=== PATIENT | male | born 1955 | race Caucasian/White ===

== ENCOUNTER 2025-05-20 08:23 | Emergency (ER) | payer MEDICARE, OTHER, SELFPAY ==
--- OUTSIDE RECORDS SUMMARY | 2025-05-20 08:32 | XMS_ITS | Encounter Summary ---
Author Organization [facility] Address [address] [place] [address] Phone Care Team Providers Care Head Control Clerk Name Role Phone Xavier Sofia MD Primary Care Provider Jamey Figueredo MD Unavailable [phone] Reason for Visit * Reason Comments Medication Refill Encounter Details Date Type Department Care Team ([facility] Contact Info) Description 01/13/2021 Refill [facility] - Internal Medicine - [place] [address] [place] [id number] Xavier Sofia MD [address] [place] [address] Medication Refill Social History Tobacco Use Types Packs/Day Years Used Date Smoking Tobacco: Former Cigarettes Q uit: 07/10/2014 Smokeless Tobacco: Never Alcohol Use Standard Drinks/Week Comments Yes 42 (1 standard drink = 0.6 oz pu re alcohol) 6 beers daily PHQ-2 Answer Date Recorded Total Score - Questions 1-9 0 10/14 Sex and Gender Information Value Date Recorded Sex Assigned at Not on file Legal Sex Male 9:16 PM CDT Gender Identity Not on file Sexual Orientation Not on file COVID-19 Exposure Response Date Recorded In the last month, have you been in contact with someone who was confirmed or suspected to have Coronavirus / COVID-19? No / Unsure 12/22/2020 6:37 PM CASTING AND PASTING SUPERVISOR documented as of this encounter Plan of Treatment Upcoming Encounters Date Type Department Care Team (Late Contact Info) Description 06/22/2025 1:00 PM CDT Office Visit [facility] - Primary Care - [place] [address] [place] [place] [phone] Xavier Sofia MD [address] [place] [address] documented as of this encounter Visit Diagnoses Not on filedocumented in this encounter Additional Health Concerns Infection Onset Date Last Indicated Resolved Time C. difficile Rule-Out 04/20/2025 04/20/20252024 11:00 PM CDT Assessment Noted Time PHQ-9 Depression Total Score: 0 10/25/19 1:00 PM CASTING AND PASTING SUPERVISOR documented as of this encounter Care Teams Head Control Clerk Relationship Specialty Start Date End Date Xavier Sofia MD [address] [place] [address] PCP - General Internal Medicine 06/29/16 Jamey Figueredo MD [address] [place] [address] Consulting Physician Psychiatry 06/01/21 documented as of this encounter
--- OUTSIDE RECORDS SUMMARY | 2025-05-20 08:32 | XMS_ITS | Encounter Summary ---
Author Organization [facility] Address [address] [place] [address] Phone Care Team Providers Care Aquatic Scientist Name Role Phone Xavier Sofia MD Primary Care Provider [phone] Jamey Figueredo MD Unavailable Reason for Visit * Reason Comments Medication Refill Encounter Details Date Type Department Care Team (Late st Contact Info) Description 03/09/2024 Refill [facility] - Internal Medicine - [place] [address] [place] [phone] Xavier Sofia MD [address] [place] [address] Medication Refill Social History Tobacco Use Types Packs/Day Years Used Date Smoking Tobacco: Former Cigarettes Q uit: 11/09/2022 Passive Smoke Exposure: Past Smokeless Tobacco: Never Comments:quit on 05/03/2021; started back up again 10/07/2021 Alcohol Use Standard Drinks/Week Comments Yes 5 (1 standard drink = 0.6 oz pur e alcohol) [facility] Utilities Answer Date Recorded In the past 12 months has [employer], gas, oil, or water company threatened to shut off services in your home? No 11/19/2023 Social Connection and Isolation Panel Answer Date Recorded In a typical week, how many times do you talk on the phone with family, friends, or neighbors? More than three times a week 11/19/2023 How often do you get togethe r with friends or relatives? More than three times a week 11/19/2023 How often do you attend chur ch or druze services? Never 11/19/2023 Do you belong to any clubs o r organizations such as christianity groups, unions, fraternal or athletic groups, or school groups? No 11/19/2023 How often do you attend meet ings of the clubs or organizations you belong to? Never 11/19/2023 Are you , , di vorced, , never , or living with a partner? 11/19/2023 AUDIT-C Answer Date Recorded Q1: How often do you have a drink containing alcohol? Never 11/19/2023 Q2: How many drinks containi ng alcohol do you have on a typical day when you are drinking? Patient does not drink Q3: How often do you have si x or more drinks on one occasion? Never 11/19/2023 Overall Financial Resource Strain (CARDIA) Answe r Date Recorded How hard is it for you to pa y for the very basics like food, housing, medical care, and heating? Not hard at all 11/19/2023 PHQ-2 Answer Date Recorded Total Score - Questions 1-9 0 04/2024 [facility] - Occupational Stress Questionnaire Answer Date Recorded Do you feel stress - tense, restless, nervous, or anxious, or unable to sleep at night because your mind is troubled all the time - these days? Not at all 11/19/2023 Exercise Vital Sign Answer Date Recorde d On average, how many days pe r week do you engage in moderate to strenuous exercise (like a brisk walk)? 3 days 11/19/2023 On average, how many minutes do you engage in exercise at this level? 30 min 11/19/2023 Hunger Vital Sign Answer Date Recorded Within the past 12 months, y ou worried that your food would run out before you got the money to buy more. Never true 11/19/19 24 Within the past 12 months, t he food you bought just didn't last and you didn't have money to get more. Never true 11/19/2023 PRAPARE - Transportation Answer Date Re corded In the past 12 months, has l ack of transportation kept you from medical appointments or from getting medications? No 03/2024 In the past 12 months, has l ack of transportation kept you from meetings, work, or from getting things needed for daily living? No 11/19/2023 Housing Stability Vital Sign Answer Johnny e Recorded In the last 12 months, was t here a time when you were not able to pay the mortgage or rent on time? No 11/19/2023 In the last 12 months, how many places have you lived? 1 11/19/2023 In the last 12 months, was t here a time when you did not have a steady place to sleep or slept in a fci (including now)? No 11/19/2023 Sexually Active Control Partners Comments Not Currently Sex and Gender Information Value Date Recorded Sex Assigned at Not on file Legal Sex Male 9:16 PM CDT Gender Identity Not on file Sexual Orientation Not on file documented as of this encounter Miscellaneous Notes * Telephone Encounter - Akua Reyes RN - 03/10/2024 10:30 AM CDT Medication(s) refilled and signed per [facility] Chronic Medication Refill Standing Order for Pediatricand Adult Patients. Requested Prescriptions Pending Prescriptions Disp Refills levothyroxine (SYNTHROID) 137 MCG Tablet [Pharmacy Med Name: LEVOTHYROXINE 0.137MG (137MCG) TAB] 90Tablet 3 Sig: Take 1 Tablet by mouth daily. Thyroid Hormones Protocol Passed - 03/09/2024 5:53 AM Passed - Visit with relevant provider in past 12 months or upcoming 90 days Recent Visits Date Type Provider Dept 02/18/24 Office Visit Xavier Sofia MD [facility] [place] 11/19/23 Office Visit Xavier Sofia MD [facility] [place] 08/13/23 Office Visit Xavier Sofia MD [facility] [place] 04/30/23 Office Visit Xavier Sofia MD [facility] [place] Showing recent visits within past 365 days and meeting all other requirements Future Appointments Date Type Provider Dept 05/26/24 Appointment Xavier Sofia MD [facility] [place] Showing future appointments within next 90 days and meeting all other requirements Passed - Normal TSH in past 12 months TSH Date Value Ref Range Status 11/26/2023 2.299 0.300 - 5.000 mIU/L Final documented in this encounter Plan of Treatment Upcoming Encounters Date Type Department Care Team (Late st Contact Info) Description 06/22/2025 1:00 PM CDT Office Visit [place] [id number] [place] [address] Xavier Sofia MD [address] [place] [address] documented as of this encounter Visit Diagnoses Diagnosis Other specified hypothyroidism documented in this encounter Additional Health Concerns Infection Onset Date Last Indicated Resolved Time C. difficile Rule-Out 04/20/2025 04/20/20252024 11:00 PM CDT Assessment Noted Time PHQ-9 Depression Total Score: 0 02/18/20 24 1:41 PM CDT documented as of this encounter Care Teams Aquatic Scientist Relationship Specialty Start Date End Date Xavier Sofia MD [address] [place] [address] PCP - General Internal Medicine 06/29/16 Jamey Figueredo MD [address] [place] [address] Consulting Physician Psychiatry 06/01/21 documented as of this encounter
--- OUTSIDE RECORDS SUMMARY | 2025-05-20 08:32 | XMS_ITS ---
Author Name Auto Generated, Auto Generated Organization [employer] [facility] ices Address [address] [place] [address] Phone [phone] Care Team Providers Care Physical Therapist Clinic Director Name Role Phone Erick Prieto Functional Status No Results Mental Status No Results Allergies and Intolerances No Known Allergies Medications Medication Directions Start Date End Date FLUoxetine 40 mg capsule 40mg CAPSULE Or al 1 Time Daily SatSep 13 18:00:00 2015Sep 16:00:00 2015 labetalol 200 mg tablet 200mg TABLET Ora l 2 Times Daily SatSep 13::00 2015Sep 16:00:00 2015 levothyroxine 175 mcg tablet 175mcg TABLET Oral 1 Time Daily SatSep 13 18:00:00 2015Sep 16:00:00 EST 2015 omeprazole 20 mg tablet,delayed release 20mg TABLET, DELAYED RELEASE (ENTERIC COATED) Sublingual 1 Time Daily SatSep 13 18:00:00 2015Sep 16:00:00 EST 2015 pravastatin 40 mg tablet 40mg TABLET Ora l 1 Time Daily SatSep 13:00:00 2015Sep 16:00:00 2015 venlafaxine 75 mg tablet 75mg TABLET Ora l 1 Time Daily SatSep 13 18:00:00 2015Sep 16:00:00 2015 acetaminophen 325 mg tablet 650mg TABLET Oral PRN Every 4 Hours SatSep 13 18:00:00 2015Sep 16:00:00 EST 2015 aspirin 81 mg tablet,delayed release 81mg EC TABLET, DELAYED RELEASE (ENTERIC COATED) Oral 1 Time Daily SatSep 13 18:00:00 2015Sep 16:00:00 2015 dilTIAZem 30 mg tablet 30mg TABLET Oral Every 8 Hours SatSep 13 18:00:00 2015Sep 16:00:00 2015 Colace 100 mg capsule 100mg CAPSULE Oral 2 Times Daily SatSep 13 18:00:00 2015Sep 16:00:00 2015 guaiFENesin ER 600 mg tablet, extended release 12 hr 600mg TABLET, EXTENDED RELEASE 12 HR Oral Every 12 Hours SatSep 13:00:00 2015Sep 16:00:00 2015 ibuprofen 600 mg tablet 600mg TABLET Ora l PRN Every 8 Hours SatSep 13:00:00 2015Sep 16 01:00:00 2015 Problems Active Concerns * Multiple fractures of ribs, left side, subsequent encounter for fracture with routine healing* Code: * Start Date: SatSep 13 00:00:00 2015 * End Date: * Text: * Pain in thoracic spine* Code: * Start Date: SatSep 13 00:00:00 2015 * End Date: * Text: * Hypo-osmolality and hyponatremia* Code: * Start Date: SatSep 13 00:00:00 2015 * End Date: * Text: * Alcohol dependence, uncomplicated* Code: * Start Date: SatSep 13 00:00:00 2015 * End Date: * Text: * Essential (primary) hypertension* Code: * Start Date: SatSep 13 00:00:00 2015 * End Date: * Text: Reason for Referral Past Medical History
--- OUTSIDE RECORDS SUMMARY | 2025-05-20 08:32 | XMS_ITS | Clinical Summary ---
Author Organization [facility] Address [address] [place] [address] Phone Care Team Providers Care Customer Accounts Advisor Name Role Phone Xavier Sofia MD Primary Care Provider Jamey Figueredo MD Unavailable Medications FLUoxetine (PROZAC) 40 MG Capsule Take 40 mg by mouth daily. 01/16/20 17 Active aspirin EC 81 MG Tablet Delayed Response Take 81 mg by mouth daily. Active amLODIPine (NORVASC) 10 MG Tablet Take 1 Tablet by mouth daily. 90 Tablet 1 12/01/19 25 Active levothyroxine (SYNTHROID) 137 MCG TabletIndications: Other specified hypothyroidism Take 1 Tablet by mouth daily. 90 Tablet 1 12/01/19 25 Active pravastatin (PRAVACHOL) 40 MG Tablet Take 1 Tablet by mouth nightly. 90 Tablet 1 12/01/19 25 Active hydrALAZINE 25 MG Tablet Take 1 Tablet by mouth 3 times daily. 270 Tablet 1 12/01/19 25 Active labetalol (NORMODYNE) 200 MG Tablet TAKE 1 TABLET BY MOUTH TWICE DAILY 180 Tablet 1 02/16/20 25 Active albuterol 108 (90 Base) MCG/ACT Aerosol Solution INHALE 2 PUFFS BY MOUTH EVERY 6 HOURS NEEDED FOR WHEEZING 6.7 g 02/26/20 25 Active rOPINIRole (REQUIP) 0.25 MG Tablet Take 1 Tablet by mouth nightly. 30 Tablet 3 04/15/20 25 Active benazepril (LOTENSIN) 40 MG Tablet TAKE 1 TABLET BY MOUTH DAILY 90 Tablet 1 05/03/20 25 Active celecoxib (CeleBREX) 200 MG Capsule Take 1 Capsule by mouth daily as needed for Mild or more severe pain. 30 Capsule 3 05/10/20 25 Active famotidine (PEPCID) 40 MG Tablet TAKE 1 TABLET BY MOUTH EVERY EVENING 90 Tablet 05/17/20 25 Active benazepril (LOTENSIN) 40 MG Tablet Take 1 Tablet by mouth daily. 90 Tablet 1 12/01/19 25 025 Discontinued famotidine (PEPCID) 40 MG Tablet Take 1 Tablet by mouth every evening. 90 Tablet 1 12/01/19 25 025 Discontinued Active Problems Problem Noted Date Diagnosed Date GERD without esophagitis 03/09/2025 Aneurysm of ascending aorta without rupture 11/14 Generalized osteoarthritis 02/18/2024 Chronic right shoulder pain 01/22/2023 Panlobular emphysema 01/24/2021 Alcoholic steatohepatitis 10/25/2020 Obstructive sleep apnea syndrome 05/21/2017 Tear of left rotator cuff 01/31/2017 Other hyperlipidemia 01/29/2017 Other specified hypothyroidism 03/21/2012 Essential hypertension, benign 12/22/2010 Dysthymic disorder 12/22/2010 Encounters Date Type Department Care Team Description 05/15/20[facility] [address] [place] [address] Xavier Sofia MD Medication Refill 05/14/2025 [facility] [address] [place] [address] Xavier Sofia MD Medication Refill 05/10/2025 [facility] [facility] [address] [place] [address] Xavier Sofia MD Medication Refill 05/01/2025 [facility] [address] [place] [address] Xavier Sofia MD Medication Refill 04/15/2025 [facility] [address] [place] [address] Xavier Sofia MD 04/01/2025 Telephone [facility] [address] [facility] [place] [address] Xavier Sofia MD 03/09/2025 2:45 PM CDT Office Visit [facility] [address] [facility] [place] [address] Xavier Sofia MD Essential hypertension, benign (Primary Dx); Other hyperlipidemia; Other specified hypothyroidism; Dysthymic disorder; GERD without esophagitis Discharge Disposition: Discharged to home or Selfcare 03/09/2025 Travel 02/25/2025 Refill [facility] [address] [facility] [place] [address] Xavier Sofia MD Medication Refill from Last 3 Months Immunizations Immunization Administration Dates Next Due COVID-19, MRNA, LNP-S, BIVAL ENT , PFIZER, 30 MCG/0.3 ML (12+ Y/O) 07/19/2022 Covid-19, Mrna, Lnp-s, PF, 1 00 mcg/0.5 mL Dose (Moderna) 12/22/2020,11/24/2020 Covid-19, Mrna, Lnp-s, Pf, 1 00 Mcg Or 50 Mcg Dose (MODERNA) 08/11/2021 Covid-19, Mrna, Lnp-s, Pf, 3 0 Mcg/0.3 Ml Dose, Ronal-sucrose (Pfizer crandall top) 02/01/2022 Covid-19, Mrna, Lnp-s, Pf, Ronal-sucrose, 30 Mcg/0.3 Ml (Pfizer) 06/24/2024 Influenza Vaccine 08/18/2019 Influenza Vaccine, Quadrivalent, PF 10/01/2022,07/27/2021,07/26/2020,09/13 Influenza, Injectable, Mdck, Preservative Free 08/29/2013 Influenza, Quadrivalent, Adjuvanted 08/13/2023 Influenza, Trivalent, Adjuvanted, PF 08/25/2024 Pneumococcal Vaccine - 13 Valent 04/25/2021 Pneumococcal Vaccine Adult - 23 Valent 6 Pneumococcal conjugate PCV20 , polysaccharide [id number] conjugate, adjuvant, PF 10/23/2022 RSV, Recombinant, Protein Quach bunit Rsvpref, Adjuvant Recon (Arexvy) 10/24/2023 Sars-cov-2 (Covid-19) Vaccin e, Unspecified 07/19/2023 Zoster Vaccine Recombinant 05/12/2024,02/24/2024 Family History Medical History Relation Name Comments Asthma Father No Known Problems Mother No Known Problems Sister Relation Name Status Comments Father Mother Sister Alive Social History Tobacco Use Types Packs/Day Years Used Date Smoking Tobacco: Former Cigarettes Q uit: 11/09/2022 Passive Smoke Exposure: Past Smokeless Tobacco: Never Tobacco Cessation:Counseling Given: No Comments:quit on 05/03/2021; started back up again 10/07/2021 Alcohol Use Standard Drinks/Week Comments Yes 5 (1 standard drink = 0.6 oz pur e alcohol) [employer] Answer Date Recorded In the past 12 months has [employer], gas, oil, or water [employer] threatened to shut off services in your [...] week 11/19/2023 How often do you attend [facility] or ten[facility] services? Never 11/19/2023 Do you belong to any clubs o r organizations such as restoration groups, unions, fraternal or athletic groups, or [...] Recorded Total Score - Questions 1-9 0 02/12 [facility] - Occupational Stress Questionnaire Answer Date [...] place to sleep or slept in a nursing home (including now)? No 11/19/2023 Sexually Active Control Partners Comments Not Currently Sex and Gender Information Value Date Recorded Sex Assigned at Not on file Legal Sex Male 9:16 PM CDT Gender Identity Not on file Sexual Orientation Not on file Last Filed Vital Signs Vital Sign Reading Time Taken Comments Blood Pressure 118/66 03/09/2025 2:48 PM CDT Pulse 66 03/09/2025 2:48 PM CDT Temperature 36.7 C (98 F) 03/09/2025 2:48 PM CDT Respiratory Rate 12 05/26/2024 11:33 AM CDT Oxygen Saturation 94% 03/09/2025 2:48 PM CDT Inhaled Oxygen Concentration - - Weight 118.4 kg (261 lb) 03/09/2025 2:48 PM CDT Height 180.3 cm (5' 11) 03/09/2025 2:48 PM CDT Body Mass Index 36.4 03/09/2025 2:48 PM CDT Plan of Treatment Upcoming Encounters Date Type Department Care Team (Late st Contact Info) Description 06/22/2025 1:00 PM CDT Office Visit [facility] - Primary Care - [place] [address] [place] [address] Xavier Sofia MD [address] [place] [address] Health Maintenance Due Date Last Done Comments Hepatitis C Virus (HCV) Screening 1955 TdaP Immunization 1955 Cologuard 1998 Immunochemical Fecal Occult Blood 1998 SARS-COV-2 Immunization ( season) 2024 06/24/2024, 07/19/2023, 07/19/2022, Additional history exists Influenza Immunization (#1) 06/14/202508/14, 08/13/2023, 07/17/2022, Additional history exists Colonoscopy 11/01/2025 11/01/2015 Colorectal Cancer Screening 11/01/2025 AAA Screening Ultrasound Completed 08/29/2021 Pneumococcal Immunization (50+ years) Completed 10/23/2022, 04/25/2021, 09/13/2016 Pneumococcal Immunization Combined Discontinued 10/23/2022, 04/25/2021, 09/13/2016 Respiratory Syncytial Virus (RSV) Immunization (Adult) Completed 10/24/2023 PSA Discussion Discontinued 11/26/2023, 0404/2022, 09/16/2019 Zoster Immunization Completed 05/12/2024, Hepatitis B Immunization Aged Out No longer eligible based on patient's age to complete this topic Human Papillomavirus (HPV) Immunization Aged Out No longer eligible based on patient's age to complete this topic Meningococcal Immunization (ACWY) Aged Out No longer eligible based on patient's age to complete this topic Rotavirus Immunization Aged Out No lo nger eligible based on patient's age to complete this topic Medical Devices Implanted Type Area Industrial Mechanic Device Identifier Shelf Expiration Date Model / Serial / Lot Suture [place], Biocomposite Swivelock, Double Loaded Implanted:Qty: 3 on 01/31/2017 by Dale Robert MD at [facility] Left: Shoulder [employer] 05/13/2018 [id number] / / [id number] Procedures Procedure Name Priority Date/Time Associated Diagnosis Comments PSA SCREEN Routine 11/26/2023 8:57 AM WINDING DEPARTMENT SUPERVISOR Screening for prostate cancer US AAA SCREENING Routine 08/29/2021 8:40 AM WINDING DEPARTMENT SUPERVISOR Smoking history Encounter for abdominal aortic aneurysm (AAA) screening COLONOSCOPY Routine 11/01/2015 from Last 3 Months or Most Recently Relevant to Health Maintenance Results * PSA SCREEN (11/26/2023 8:57 AM WINDING DEPARTMENT SUPERVISOR) PSA SCREEN, TOTAL 0.39 <4.00 ng/mL 11/26/2023 3:50 PM WINDING DEPARTMENT SUPERVISOR [facility] Blood Venipuncture / Unknown 11/26/2023 8:57 AM WINDING DEPARTMENT SUPERVISOR 11/26/2023 8:57 AM WINDING DEPARTMENT SUPERVISOR Narrative [facility] - 11/26/2023 3:50 PM WINDING DEPARTMENT SUPERVISOR [facility] Total PSA assay is a Chemiluminescent Microparticle Immunoassay (CMIA) for the quantitative determination of total PSA (both free PSA and PSA complexed to [id number]) in human serum. Total PSA values obtained with different assay methods, including Shanks PSA assays, cannot be used interchangeably. Xavier Sofia MD CHEMISTRY ORDERABLES Final Result [facility] [facility] [place] [address] * US AAA SCREENING (08/29/2021 8:40 AM WINDING DEPARTMENT SUPERVISOR) Anatomical Region Laterality Modality Abdomen N/A Ultrasound 08/29/2021 9:16 AM WINDING DEPARTMENT SUPERVISOR Impressions 08/29/2021 9:19 AM WINDING DEPARTMENT SUPERVISOR IMPRESSION: No abdominal aortic aneurysm. Narrative 08/29/2021 9:19 AM WINDING DEPARTMENT SUPERVISOR EXAM DESCRIPTION: US AAA SCREENING REASON FOR STUDY: Personal history of nicotine dependence TECHNIQUE: Grayscale images acquired of the aorta and stored on PACS. Selected color Doppler and spectral images recorded. COMPARISON: None FINDINGS: No aneurysm identified. Atheromatous disease of the aorta. Iliac arteries are nondilated. THIS IS AN ELECTRONICALLY VERIFIED FINAL REPORT 08/29/2021 9:16 AM - Electronically signed by Ta Johnson M.D. NC: NC Report ID: [id number] Reading Location: [id number] Procedure Note Ta Johnson MD - 08/29/2021 EXAM DESCRIPTION: US AAA SCREENING REASON FOR STUDY: Personal history of nicotine dependence TECHNIQUE: Grayscale images acquired of the aorta and stored on PACS. Selected color Doppler and spectral images recorded. COMPARISON: None FINDINGS: No aneurysm identified. Atheromatous disease of the aorta. Iliac arteries are nondilated. THIS IS AN ELECTRONICALLY VERIFIED FINAL REPORT 08/29/2021 9:16 AM - Electronically signed by Ta Johnson M.D. NC: NC Report ID: [id number] Reading Location: [id number] IMPRESSION: No abdominal aortic aneurysm. Xavier Sofia MD IMG US ORDERABLES Final Res ult * HM COLONOSCOPY (11/01/2015) Xavier Sofia MD PROCEDURE/MINOR SURGICAL OR DERABLES Final Result from Last 3 Months or Most Recently Relevant to Health Maintenance Insurance MEDICARE GROUP [employer]RAT[employer] Member Subscriber Plan / Payer (Ef fective 2002-Present) Name:Aly Bryn Earl Relation to Subscriber:Self Name:Bryn Lu Mady Payer ID:[id number] Group ID:[id number] Type:Not on file Address: [facility] [address] [place] [address] Advance Directives * Full Code (Latest Code Status on File) Date Activated Date Inactivated Comments 01/31/2017 5:25 AM 01/31/2017 1:16 PM CPR-Full Justin atment: FULL ARREST: Attempt Resuscitation/CPR wit intubation and mechanical ventilation. PRE-ARREST: Use entire range of life support measures to stabilize the patient. Care Teams Customer Accounts Advisor Relationship Specialty Start Date End Date Xavier Sofia MD [address] [place] [address] PCP - General Internal Medicine 06/29/16 Jamey Figueredo MD [address] [place] [address] Consulting Physician Psychiatry 06/01/21
[2025-05-20 08:34] VITALS: BP 133/77; PULSE 89; RESP 16; TEMP 36.1; O2SAT 96
--- OUTSIDE RECORDS SUMMARY | 2025-05-20 08:35 | XMS_ITS ---
Author Name Auto Generated, Auto Generated Organization [employer] [facility] ices Address [address] [place] [address] Phone [phone] Care Team Providers Care Redye Hand Name Role Phone Erick Prieto [phone] Functional Status No Results Mental Status No [...]
--- OUTSIDE RECORDS SUMMARY | 2025-05-20 08:35 | XMS_ITS ---
Author Name Auto Generated, Auto Generated Organization [employer] [facility] ices Address [address] [place] [address] Phone [phone] Care Team Providers Care Edge Glue Machine Tender Name Role Phone Erick Prieto [phone] Functional Status No Results Mental Status No [...]
--- NOTE | 2025-05-20 08:56 | ED_ITS ---
HPI - General Adult General Chief complaint: Unspecified Stated complaint: Body Aches/Sleeping Problems Time Seen by Provider: 05/20/25 08:30 Source: patient and RN notes reviewed Mode of arrival: ambulatory Limitations: no limitations History of Present Illness HPI narrative: 69-year-old male presents to the ER complaining of generalized joint pain the last 2 weeks. Patient denies any falls or injuries. Patient denies any sick symptoms, fevers, body aches, chills, upper respiratory symptoms, cough, chest pain difficulty breathing, or any other symptoms. Patient has a primarily feels pain in the joints of his hands and into his bilateral knees. Patient denies any history of arthritis or rheumatoid arthritis or any autoimmune conditions. Patient also reports his hands feel tight. Patient cannot see his primary care provider until next month they prescribed him Celebrex and ropinirole to help with pain he thought he may have restless leg syndrome. They also stopped his statin for 2 weeks the may be the reason of his joint pain however the pain persists. Related Data Home Medications ?Medication ?Instructions ?Recorded ?Confirmed ?Last Taken ?Type amlodipine 10 mg tablet mg 05/20/25 Unknown History benazepril 40 mg tablet mg 05/20/25 Unknown History celecoxib 200 mg capsule mg 05/20/25 Unknown History famotidine 40 mg tablet mg 05/20/25 Unknown History fluoxetine 40 mg capsule mg 05/20/25 Unknown History hydralazine 25 mg tablet mg 05/20/25 Unknown History labetalol 200 mg tablet mg 05/20/25 Unknown History levothyroxine 137 mcg tablet mcg 05/20/25 Unknown History pravastatin 40 mg tablet mg 05/20/25 Unknown History ropinirole 0.25 mg tablet mg 05/20/25 Unknown History Allergies Allergy/AdvReac Type Severity Reaction Status Date / Time No Known Allergies Allergy Verified 05/10/13 13:15 Review of Systems Review of Systems: CONSTITUTIONAL: Denies fever, chills, or sweats. EYES: Denies visual changes, redness, or discharge. ENT: Denies rhinorrhea, congestion, sore throat, or otalgia. CARDIOVASCULAR: Denies chest pain, palpitations, or edema. RESPIRATORY: Denies cough or dyspnea. GASTROINTESTINAL: Denies abdominal pain, nausea, vomiting, or diarrhea. GENITOURINARY: Denies dysuria or hematuria. SKIN: Denies rash or itching. MUSCULOSKELETAL: Denies back pain, or myalgia. Positive for joint pain. NEUROLOGIC: Denies headache, numbness, or weakness. PSYCHIATRIC: Denies anxiety or depression. All other systems reviewed are negative, except as documented in HPI. PMFSH Comments At the time of my signature, I reviewed and agree with the nursing past medical, surgical, social, and family history. There is no relevant family history pertinent to the patient complaint. Exam Narrative: GENERAL: This is a well-nourished, well-developed adult, in no apparent distress. They are non ill-appearing, nontoxic appearing. HEAD: normocephalic, atraumatic. EYES: Sclera clear/white. Conjunctiva normal. Vision is grossly intact. Extraocular movements intact EARS: External ears normal,Hearing grossly intact. NOSE: External nose vielka THROAT: Mucous membranes moist, NECK: Neck supple, CARDIOVASCULAR: Regular rate and rhythm RESPIRATORY: Respiratory rate normal, respiratory effort nonlabored, no respiratory distress SKIN: warm, Dry, intact with no suspicious lesions or rash, good texture and turgor. NEURO: awake, alert, and oriented to person, place and time. There were no obvious focal neurologic abnormalities. EXTREMITIES: Bilateral hands: No obvious deformity, injury, bruising, swelling, redness. Mild tenderness throughout the hands. Neurovascular status intact. Bilateral knees: No obvious deformity, injury, bruising, swelling, redness. Normal range of motion. Neurovascular status intact. Nontender to palpate. BACK: Nontender without deformity. Course Course Emergency Course: Portions of this record may have been created with voice recognition software Level of Care: Express Care Visit Vital Signs Vital signs: Vital Signs Temperature 97.0 F L 05/20/25 08:34 Pulse Rate 89 05/20/25 08:34 Respiratory Rate 16 05/20/25 08:34 Blood Pressure 133/77 05/20/25 08:34 Pulse Oximetry 96 05/20/25 08:34 Oxygen Delivery Room Air 05/20/25 08:34 Temperature 97.0 F L 05/20/25 08:34 Pulse Rate 89 05/20/25 08:34 Respiratory Rate 16 05/20/25 08:34 Blood Pressure 133/77 05/20/25 08:34 Pulse Oximetry 96 05/20/25 08:34 Oxygen Delivery Room Air 05/20/25 08:34 Reviewed Medical Decision Making MDM Narrative Medical decision making narrative: Patient likely has joint pain could be related to arthritis possible rheumatoid arthritis. Patient's pains management unsuccessful from what is doctor's order prescribed. Will try a course of steroids. Discussed physical exam findings. Advised supportive measures and signs/symptoms to go to the ER. Pt is a ppropriate for outpt treatment and f/u. Differential Diagnosis Differential Diagnosis: Arthritis, rheumatoid arthritis, autoimmune disorder Vital Signs Vital Signs: Vital Signs Temperature 97.0 F L 05/20/25 08:34 Pulse Rate 89 05/20/25 08:34 Respiratory Rate 16 05/20/25 08:34 Blood Pressure 133/77 05/20/25 08:34 Pulse Oximetry 96 05/20/25 08:34 Oxygen Delivery Room Air 05/20/25 08:34 Temperature 97.0 F L 05/20/25 08:34 Pulse Rate 89 05/20/25 08:34 Respiratory Rate 16 05/20/25 08:34 Blood Pressure 133/77 05/20/25 08:34 Pulse Oximetry 96 05/20/25 08:34 Oxygen Delivery Room Air 05/20/25 08:34 Critical Care Time Critical Care Time Critical Care Time: No Discharge Plan Discharge Clinical Impression: Joint pain Qualifiers: Joint pain location: unspecified Qualified Code(s): M25.50 - Pain in unspecified joint Patient Disposition: Home Condition: Stable Instructions: Arthralgia (ED) Additional Instructions: Take the prednisone as directed. Take in the morning take with food. Continue take Tylenol as needed for pain. Follow the Instructions on the bottle. Continue take your prescription medications as directed for pain. Follow-up with your PCP in 3-5 days. If you Developed worsening pain, fevers, breathing problems, chest pain, vision problems or any serious concerns please go to the ER. Patient Language: Haitian Prescriptions: New prednisone 20 mg tablet 40 mg PO DAILY 5 Days Qty: 10 0RF No Action celecoxib 200 mg capsule fluoxetine 40 mg capsule levothyroxine 137 mcg tablet labetalol 200 mg tablet pravastatin 40 mg tablet famotidine 40 mg tablet hydralazine 25 mg tablet ropinirole 0.25 mg tablet amlodipine 10 mg tablet benazepril 40 mg tablet Follow-up/Referrals: Bismark,Xavier Allen MD [Primary Care Provider] - Time of Disposition: 08:53
== END 2025-05-20 09:00 | disposition home or self-care (01) ==
PROVIDERS: PCP Internal Medicine
DX: M25.542 Pain in joints of left hand (principal); M25.541 Pain in joints of right hand; M25.562 Pain in left knee; M25.561 Pain in right knee; I10 Essential (primary) hypertension; E03.9 Hypothyroidism, unspecified; K21.9 Gastro-esophageal reflux disease without esophagitis
CPT/HCPCS: 99203; G0463

== ENCOUNTER 2025-05-29 08:22 | Emergency (ER) | payer MEDICARE, OTHER, SELFPAY ==
--- OUTSIDE RECORDS SUMMARY | 2025-05-29 08:24 | XMS_ITS | Clinical Summary ---
Author Organization [facility] Address [address] [place] [address] Phone Care Team Providers Care Rehab Liaison Name Role Phone Xavier Sofia MD Primary [...] Type Department Care Team Description 05/15/2025 [facility] [address] [place] [address] Xavier Sofia MD Medication Refill 05/14/2025 Ref[facility] [address] [place] [address] Xavier Sofia MD Medication Refill 05/10/2025 Telephone [facility] [address] [place] [address] Xavier Sofia MD Medication Refill 05/01/2025 Refill [facility] [address] [place] [address] Xavier Sofia MD Medication Refill 04/15/2025 Telephone [facility] [address] [place] [id number] Xavier Sofia MD 04/01/2025 Telephone [facility] [address] [place] [address] Xavier Sofia MD 03/09/2025 2:45 PM CDT Office Visit [facility] [address] [place] [address] Xavier Sofia MD Essential hypertension, benign (Primary Dx); Other hyperlipidemia; Other specified hypothyroidism; Dysthymic disorder; GERD without esophagitis Discharge Disposition: Discharged to home or Selfcare 03/09/2025 Travel from Last 3 Months Immunizations Immunization Administration [...] Influenza Vaccine 08/18/2019 Influenza Vaccine, Quadrivalent, PF 1001/2022,07/27/2021,07/26/2020,09/13 Influenza, Injectable, Mdck, Preservative Free 08/29/2013 Influenza, Quadrivalent, Adjuvanted 08/13/2023 Influenza, Trivalent, Adjuvanted, PF 08/25/2024 Pneumococcal Vaccine - 13 Valent 04/25/2021 Pneumococcal Vaccine Adult - 23 Valent 6 Pneumococcal conjugate PCV20 , polysaccharide [id number] conjugate, adjuvant, PF 10/23/2022 RSV, Recombinant, Protein [...] drink = 0.6 oz pur e alcohol) [facility] Utilities Answer Date Recorded In the past 12 months has th e electric, gas, oil, or water company threatened to [...] often do you attend chur ch or synagogue services? Never 11/19/2023 Do you belong to any clubs o r organizations such as jehovah's witness groups, unions, fraternal or athletic groups, or [...] Total Score - Questions 1-9 0 02/12 [facility] - Occupational Stress Questionnaire Answer Date [...] place to sleep or slept in a alf (including now)? No 11/19/2023 Sexually Active Control [...] Description 06/22/2025 1:00 PM CDT Office Visit [facility] [place] [address] [place] [address] Xavier Sofia MD [address] [place] [address] Health Maintenance Due Date Last Done Comments [...] 11/26/2023, 0404/2022, 09/16/2019 Zoster Immunization Completed 05/12/2024, 05/13/202 4 Hepatitis B Immunization Aged Out No longer [...] this topic Medical Devices Implanted Type Area Manager Media Relations Device Identifier Shelf Expiration Date Model / Serial / Lot Suture [place], Biocomposite Swivelock, Double Loaded Implanted:Qty: 3 on 01/31/2017 by Dale Robert MD at [facility] Left: Shoulder [employer] 05/13/2018 [id number] / / [id number] Procedures Procedure Name Priority Date/Time Associated Diagnosis Comments PSA SCREEN Routine 11/26/2023 8:57 AM [facility] Screening for prostate cancer US AAA SCREENING Routine 08/29/2021 8:40 AM [facility] Smoking history Encounter for abdominal aortic aneurysm (AAA) screening COLONOSCOPY Routine 11/01/2015 from Last 3 Months or Most Recently Relevant to Health Maintenance Results * PSA SCREEN (11/26/2023 8:57 AM [facility]) PSA SCREEN, TOTAL 0.39 <4.00 ng/mL 11/26/2023 3:50 PM [facility] Blood Venipuncture / Unknown 11/26/2023 8:57 AM [facility] 11/26/2023 8:57 AM [facility] Narrative [facility] - 11/26/2023 3:50 PM [facility] The ALINITY Total PSA assay is a Chemiluminescent Microparticle Immunoassay (CMIA) for the quantitative determination of total PSA (both free PSA and PSA complexed to [id number]) in human serum. Total PSA values obtained with different assay methods, including Shanks PSA assays, cannot be used interchangeably. us Xavier Sofia MD CHEMISTRY ORDERABLES Final Result [facility] [address] [place] [address] * US AAA SCREENING (08/29/2021 8:40 AM [facility]) Anatomical Region Laterality Modality Abdomen N/A Ultrasound 08/29/2021 9:16 AM [facility] Impressions 08/29/2021 9:19 AM [facility] IMPRESSION: No abdominal aortic aneurysm. Narrative 08/29/2021 9:19 AM [facility] EXAM DESCRIPTION: US AAA SCREENING REASON FOR [...] Ta Johnson M.D. NC: NC Report ID: [id number] Reading Location: [id number] Procedure Note Ta Johnson MD - 08/29/2021 [...] Ta Johnson M.D. NC: NC Report ID: [id number] Reading Location: [id number] IMPRESSION: No abdominal aortic aneurysm. us Xavier Sofia MD IMG US ORDERABLES Final Res ult * HM COLONOSCOPY (11/01/2015) us Xavier Sofia MD PROCEDURE/MINOR SURGICAL OR DERABLES Final Result from Last 3 Months or Most Recently Relevant to Health Maintenance Insurance MEDICARE [employer] Member Subscriber Plan / Payer (Ef fective 2002-Present) Name:Bryn Lu Mady Relation to Subscriber:Self Name:Bryn Lu Mady Payer ID:[id number] Group ID:[id number] Type:Not on file Address: [address] [address] [place] [address] Advance Directives * Full Code (Latest Code Status on File) Date Activated Date Inactivated Comments 01/31/2017 5:25 AM 01/31/2017 1:16 PM CPR-Full Justin atment: FULL ARREST: Attempt Resuscitation/CPR wit intubation and mechanical ventilation. PRE-ARREST: Use entire range of life support measures to stabilize the patient. Care Teams Rehab Liaison Relationship Specialty Start Date End Date Xavier Sofia MD PCP - General Internal Medicine 06/29/16 Jamey Figueredo MD Consulting Physician Psychiatry 06/01/21
--- OUTSIDE RECORDS SUMMARY | 2025-05-29 08:24 | XMS_ITS | Encounter Summary ---
Author Organization [facility] Address [address] [place] [address] Phone Care Team Providers Care Weight Inspector Name Role Phone Xavier Sofia MD Primary Care Provider [phone] Jamey Figueredo MD Unavailable [phone] Reason for Visit * Reason Comments Medication Refill Encounter Details Date Type Department Care Team (Late st Contact Info) Description 03/09/2024 Refill [facility] - Internal Medicine - [place] [address] [place] [id number] Xavier Sofia MD [address] [place] [address] Medication Refill Social History Tobacco Use Types Packs/Day Years Used Date Smoking Tobacco: Former Cigarettes Q uit: 11/09/2022 Passive Smoke Exposure: Past Smokeless Tobacco: Never Comments:quit on 05/03/2021; started back up again 10/07/2021 Alcohol Use Standard Drinks/Week Comments Yes 5 (1 standard drink = 0.6 oz pur e alcohol) [facility] Utilities Answer Date Recorded In the past 12 months has [employer] electric, gas, oil, or water company threatened [...] often do you attend chur ch or anabaptism services? Never 11/19/2023 Do you belong to any clubs o r organizations such as druze groups, unions, fraternal or athletic groups, or [...] Total Score - Questions 1-9 0 04/2024 [facility] - Occupational Stress Questionnaire Answer [...] place to sleep or slept in a care home (including now)? No 11/19/2023 Sexually Active [...] Date Type Provider Dept 02/18/24 Office Visit Xvaier Sofia MD [facility] 11/19/23 Office Visit Xavier Sofia MD [facility] 08/13/23 Office Visit Xavier Sofia MD [facility] 04/30/23 Office Visit Xavier Sofia MD [facility] Showing recent visits within past 365 days and meeting all other requirements Future Appointments Date Type Provider Dept 05/26/24 Appointment Xavier Sofia MD [facility] Showing future appointments within next 90 days and meeting all other requirements Passed - Normal TSH in past 12 months TSH Date Value Ref Range Status 11/26/2023 2.299 0.300 - 5.000 mIU/L Final documented in this encounter Plan of Treatment Upcoming Encounters Date Type Department Care Team (Late st Contact Info) Description 06/22/2025 1:00 PM CDT Office Visit [facility] - Primary Care - [place] [address] [place] [address] Xavier Sofia MD [address] [place] [address] documented as of this encounter Visit Diagnoses Diagnosis Other specified hypothyroidism documented in this encounter Additional Health Concerns Infection Onset Date Last Indicated Resolved Time C. difficile Rule-Out 04/20/2025 04/20/20252024 11:00 PM CDT Assessment Noted Time PHQ-9 Depression Total Score: 0 02/18/20 24 1:41 PM CDT documented as of this encounter Care Teams Weight Inspector Relationship Specialty Start Date End Date Xavier Sofia MD PCP - General Internal Medicine 06/29/16 Jamey Figueredo MD Consulting Physician Psychiatry 06/01/21 documented as of this encounter
--- OUTSIDE RECORDS SUMMARY | 2025-05-29 08:24 | XMS_ITS ---
Author Name Auto Generated, Auto Generated Organization [employer] [facility] ices Address [address] [place] [address] Phone [phone] Care Team Providers Care Sales Agent Food Vending Service Name Role Phone Erick Prieto Functional Status [...]
--- OUTSIDE RECORDS SUMMARY | 2025-05-29 08:24 | XMS_ITS | Encounter Summary ---
Author Organization [facility] Address [address] [place] [address] Phone Care Team Providers Care Cell Maker Name Role Phone Xavier Sofia MD Primary Care Provider Jamey Figueredo MD Unavailable [phone] Reason for Visit * Reason Comments Medication Refill Encounter Details Date Type Department Care Team (Late Contact Info) Description 01/13/2021 [facility]ill [facility] - [place] [address] [place] [id number] Xavier Sofia MD [address] [place] [address] Medication Refill Social History Tobacco Use Types [...] COVID-19? No / Unsure 12/22/2020 6:37 PM STAGING TECHNICIAN documented as of this encounter Plan of Treatment Upcoming Encounters Date Type Department Care Team (Late st Contact Info) Description 06/22/2025 1:00 PM CDT Office Visit [facility] - Primary Care - [place] [address] [place] [address] Xavier Sofia MD [address] [place] [address] documented as of this encounter Visit Diagnoses Not on filedocumented in this encounter Additional Health Concerns Infection Onset Date Last Indicated Resolved Time C. difficile Rule-Out 04/20/2025 04/20/20252024 11:00 PM CDT Assessment Noted Time PHQ-9 Depression Total Score: 0 10/25/19 1:00 PM STAGING TECHNICIAN documented as of this encounter Care Teams Cell Maker Relationship Specialty Start Date End Date Xavier Sofia MD PCP - General Internal Medicine 06/29/16 Jamey Figueredo MD Consulting Physician Psychiatry 06/01/21 documented as of this encounter
[2025-05-29 08:28] VITALS: BP 114/72; PULSE 85; RESP 18; TEMP 36.1; O2SAT 98
--- OUTSIDE RECORDS SUMMARY | 2025-05-29 08:28 | XMS_ITS ---
Author Name Auto Generated, Auto Generated Organization [employer] [facility] ices Address [address] [place] [address] Phone [phone] Care Team Providers Care Sales Support Assistant Name Role Phone Erick Prieto Functional Status [...]
--- NOTE | 2025-05-29 08:48 | ED_ITS ---
HPI - General Adult General Chief complaint: Unspecified Stated complaint: Body Aches Time Seen by Provider: 05/29/25 08:23 Source: patient Mode of arrival: ambulatory Limitations: no limitations History of Present Illness HPI narrative: 69-year-old male presents to [facility] with complaints of continued joint pain over the past month. Patient was evaluated here on May 20, diagnosed with joint pain and was given 5 days of prednisone 40 mg at that time. Patient reports that symptoms resolved with prednisone but quickly returned upon completion of prednisone prescription. Patient reports that he is scheduled to see his primary care provider on June 20 but is seeking medication to help with his symptoms. Patient reports that 6 weeks ago, his primary care provider started him back on Celebrex and quit his cholesterol medication thinking this was the cause of his symptoms. Patient denies unexplained weight loss, night sweats, fever, body aches, chills, nausea, vomiting, diarrhea, cough, shortness of breath or wheezing. Onset (ago): month(s) (1) Quality: aching Pain Consistency: constant Relieving factors: none Exacerbating factors: none Associated symptoms: denies other symptoms Treatments prior to arrival: other (Prednisone ) Related Data Home Medications ?Medication ?Instructions ?Recorded ?Confirmed ?Last Taken ?Type amlodipine 10 mg tablet mg 05/20/25 Unknown History benazepril 40 mg tablet mg 05/20/25 Unknown History celecoxib 200 mg capsule mg 05/20/25 Unknown History famotidine 40 mg tablet mg 05/20/25 Unknown History fluoxetine 40 mg capsule mg 05/20/25 Unknown History hydralazine 25 mg tablet mg 05/20/25 Unknown History labetalol 200 mg tablet mg 05/20/25 Unknown History levothyroxine 137 mcg tablet mcg 05/20/25 Unknown History pravastatin 40 mg tablet mg 05/20/25 Unknown History ropinirole 0.25 mg tablet mg 05/20/25 Unknown History Allergies Allergy/AdvReac Type Severity Reaction Status Date / Time No Known Allergies Allergy Verified 05/29/25 08:29 Review of Systems Constitutional: Constitutional: Denies chills, Denies daytime sleepiness, Denies difficulty sleeping, Denies excessive sweating, Denies fatigue, Denies fever(s), Denies headache(s), Denies increased appetite, Denies malaise, Denies night sweats, Denies poor appetite, Denies weakness and Denies weight loss Comments: joint pains to knees, hands shoulders and ankles ENT: Denies vertigo, Denies dizziness, Denies headache(s) and Denies lip swelling Cardiovascular: Cardiovascular: Denies chest pain, Denies chest pain at rest, Denies chest pain with activity, Denies diaphoresis, Denies leg edema and Denies lightheadedness Respiratory: Respiratory: Denies cough, Denies pain with cough, Denies dyspnea and Denies wheezing Gastrointestinal: Gastrointestinal: Denies abdominal pain, Denies constipation, Denies diarrhea and Denies nausea Musculoskeletal: Musculoskeletal: Denies deformity, Reports arthralgias, Denies joint swelling, Denies neck pain, Denies numbness and Denies stiffness Neurologic: Denies confusion, Denies vertigo, Denies dizziness, Denies syncope, Denies frequent falls and Denies headache(s) PMFSH Comments At time of signature, I agree with nursing past medical, surgical, social and family history. There is no relevant family history pertinent to the presenting complaint. Exam Const: General: cooperative, healthy appearing, comfortable, no acute distress, well developed, alert, awake and Physically active Nutritional Appearance: well nourished and obese Orientation/consciousness: oriented to person, oriented to place, oriented to time and patient oriented x3 Limitations: no limitations HENMT: Head: normal to inspection Neck: Neck: normal visual inspection and full ROM Resp: Effort & Inspection: normal respiratory effort, able to speak in complete sentences, no audible wheezes, no cough, respiratory effort not decreas ed and not labored Cardio: Rate: regular rate, not bradycardic and not tachycardic Rhythm: regular rhythm GI: Inspection: normal to inspection Skin: Rashes: no rashes Wounds: no wounds Neuro: General: oriented to person, oriented to place, oriented to time and patient oriented x3 Extrem: General: normal to inspection, full ROM and normal gait Psych: Appearance: grossly normal and well kempt Mental Status: mental status grossly normal Speech and movement: Normal speech and movement present Course Course Level of Care: Express Care Visit Vital Signs Vital signs: Vital Signs Temperature 36.1 C L 05/29/25 08:28 Pulse Rate 85 05/29/25 08:28 Respiratory Rate 18 05/29/25 08:28 Blood Pressure 114/72 05/29/25 08:28 Pulse Oximetry 98 05/29/25 08:28 Oxygen Delivery Room Air 05/29/25 08:28 Temperature 36.1 C L 05/29/25 08:28 Pulse Rate 85 05/29/25 08:28 Respiratory Rate 18 05/29/25 08:28 Blood Pressure 114/72 05/29/25 08:28 Pulse Oximetry 98 05/29/25 08:28 Oxygen Delivery Room Air 05/29/25 08:28 Medical Decision Making MDM Narrative Medical decision making narrative: Encouraged patient to keep scheduled appointment with primary care provider. Patient understands risk factors and side effects of long-term steroid use. Encouraged patient to proceed to the emergency room if symptoms worsen. Encouraged patient to discuss rheumatology referral with primary care provider Differential Diagnosis Differential Diagnosis: Osteoarthritis, rheumatoid arthritis Vital Signs Vital Signs: Vital Signs Temperature 36.1 C L 05/29/25 08:28 Pulse Rate 85 05/29/25 08:28 Respiratory Rate 18 05/29/25 08:28 Blood Pressure 114/72 05/29/25 08:28 Pulse Oximetry 98 05/29/25 08:28 Oxygen Delivery Room Air 05/29/25 08:28 Temperature 36.1 C L 05/29/25 08:28 Pulse Rate 85 05/29/25 08:28 Respiratory Rate 18 05/29/25 08:28 Blood Pressure 114/72 05/29/25 08:28 Pulse Oximetry 98 05/29/25 08:28 Oxygen Delivery Room Air 05/29/25 08:28 Critical Care Time Critical Care Time Critical Care Time: No Discharge Plan Discharge Clinical Impression: Joint pain Qualifiers: Joint pain location: unspecified Qualified Code(s): M25.50 - Pain in unspecified joint Patient Disposition: Home Condition: Stable Instructions: Swollen Joint (ED), Arthritis (ED) Additional Instructions: Take prednisone as prescribed Follow-up with primary care provider to discuss labs, further workup for chronic joint pain and possible rheumatology referral [id number] Tylenol as needed for pain Monitor symptoms closely and proceed to the emergency room if symptoms worsen Patient Language: Turkmen Prescriptions: New prednisone 10 mg tablet 10 mg PO DIRECTED 8 Days Qty: 20 0RF Rx Instructions: see taper instructions; 40 mg x 2 days, 30mg X 2, 20 mg x 2 days, 10 mg x 2 days No Action celecoxib 200 mg capsule fluoxetine 40 mg capsule levothyroxine 137 mcg tablet labetalol 200 mg tablet pravastatin 40 mg tablet famotidine 40 mg tablet hydralazine 25 mg tablet ropinirole 0.25 mg tablet amlodipine 10 mg tablet benazepril 40 mg tablet prednisone 20 mg tablet 40 mg PO DAILY 5 Days Qty: 10 0RF Follow-up/Referrals: Bismark,Xavier Allen MD [Primary Care Provider] - Time of Disposition: 08:58
== END 2025-05-29 09:09 | disposition home or self-care (01) ==
PROVIDERS: Emergency Provider Nurse Practitioner Family; PCP Internal Medicine
DX: M25.50 Pain in unspecified joint (principal); I10 Essential (primary) hypertension; K21.9 Gastro-esophageal reflux disease without esophagitis; E03.9 Hypothyroidism, unspecified; M19.90 Unspecified osteoarthritis, unspecified site; G25.81 Restless legs syndrome
CPT/HCPCS: 99213; G0463